=== PATIENT | male | born 1935 | race Caucasian/White ===

== ENCOUNTER 2016-10-15 23:27 | Inpatient (IN) | payer MEDICARE, OTHER ==
--- NOTE | ~2016-10-15 | CN ---
Consultation Report [facility] [address] [place]. [address] NAME: DOLORES RÍOS : 35 STATUS : DIS IN PAT#: [id number] AGE: 81 ADM/REG DATE : 10/16/16 MR#: [id number] REPORT SERV DATE: 10/21/16 DICTATED BY: NELSON BARAJAS DATE: 10/20/16 REPORT STATUS : Draft TRANSCRIBED BY: MODL DATE: 10/20/16 CONSULTATION DATE OF CONSULTATION: 10/20/2016 REASON FOR CONSULTATION: Bilateral foot pain. HISTORY OF PRESENT ILLNESS: The patient is an 81-year-old diabetic male, who is seen at bedside with present. The patient relates an approximate two- to three-week history of pain to both feet. He describes his foot pain as burning pain, but points to the top and bottom of the left foot and bottom of the right foot. The patient relates swelling, but denies redness, denies open wounds and confirms. Denies history of trauma or injury other than a serious injury years ago and having to have surgery after having the foot "torn off and fixed." The patient relates that he is one inch shorter on the left side due to the previous injury. PAST MEDICAL HISTORY: Includes uncontrolled diabetes, hypertension, neuropathy, sleep apnea, obesity, history of stroke, COPD, coronary artery disease. MEDICATIONS: A lengthy list of medications were reviewed in the chart. PAST SURGICAL HISTORY: Includes cholecystectomy, appendectomy, left hip surgery, right knee surgery, ankle surgery. ALLERGIES: MORPHINE. SOCIAL HISTORY: Denies alcohol, tobacco, or drug use. FAMILY HISTORY: Includes a bone cancer and heart disease. REVIEW OF SYSTEMS: Recent history of severe generalized weakness, UTI, left foot pain as described above. Currently, denies nausea, vomiting, fever, or chills. Currently, denies chest pain. PHYSICAL EXAMINATION: GENERAL: The patient is seen at bedside, resting comfortably. is present. The patient is a pleasant white male, in no acute distress. VITAL SIGNS: Stable. Afebrile. HEENT: Normocephalic and atraumatic. No visible drainage. LUNGS: Unlabored breathing with normal respiratory effort. CARDIOVASCULAR: Regular rate. His capillary refill time is less than 3 seconds, digits 1 through 10 tested. No erythema. There is bilateral pitting edema, 1/7 to the ankles and mild nonpitting edema to the forefoot. ABDOMEN: The patient is obese. Nondistended. DERMATOLOGICAL: There are no open lesions, no macerations, no erythema, no drainage, no Consultation Report [place] [id number] [place]. [address] NAME: DOLORES RÍOS : 35 STATUS : DIS IN PAT#: [id number] AGE: 81 ADM/REG DATE : 10/16/16 MR#: [id number] REPORT SERV DATE: 10/21/16 DICTATED BY: NELSON BARAJAS DATE: 10/20/16 REPORT STATUS : Draft TRANSCRIBED BY: PAVEL DATE: 10/20/16 odor. MUSCULOSKELETAL: There is pain-free range of motion of the right subtalar and ankle joint. Pain-free range of motion of the right mid foot. There is limited range of motion of the patient's left subtalar joint, and ankle fusion is present on the left ankle. There is significant pain to the patient's left second metatarsal shaft and mild pain to the left third metatarsal shaft. Minimal pain to the metatarsophalangeal joints bilaterally. Hammertoe contractures 2 through 5 bilaterally are present. LABORATORY DATA: White count is 10.8. Uric acid 3.4. Sed rate 92. X-ray findings show hammertoe contractures. No fractures. No secondary bone callus appreciated. Left ankle arthrodesis present. ASSESSMENT: 1. Painful diabetic neuropathy. 2. Possible left second metatarsal stress fracture. The patient has had a left ankle fusion with a left limb discrepancy. Although there is no objective findings on x-ray to diagnose a stress fracture, there is potential of this due to the significant pain of the second metatarsal. Unfortunately, due to his weakness and gait issues, the patient is a fall risk to be immobilized in a walking boot or postoperative shoe. With outpatient treatment, we can assess for a possibility of an AFO. He will need assistance for transfers. I will see the patient on an outpatient basis. RAMÓN/PAVEL Lincoln LeonardoPArron / [id number] CC: MD Godfrey Rivas M.D.
--- NOTE | ~2016-10-15 | HP ---
History And Physical [place] [id number] [facility] [place]. [address] NAME: DOLORES RÍOS : 35 STATUS : ADM Ankit PAT#: [id number] AGE: 81 ADM/REG DATE : 10/15/16 MR#: [id number] REPORT SERV DATE: 10/16/16 DICTATED BY: LUCINA FRANCES DATE: 10/16/16 REPORT STATUS : Draft TRANSCRIBED BY: MODL DATE: 10/16/16 DATE OF ADMISSION: 10/15/2016 CHIEF COMPLAINT: An 81-year-old male, presenting with weakness and confusion. HISTORY OF PRESENT ILLNESS: The patient's history was obtained through careful interview with the patient, , son and granddaughter coupled with review of [facility] and [facility] medical records. The patient for about two weeks now has been having increasing weakness. He seems unstable when he tries to get up and walk. But over the last two days it has really progressed to the point where he cannot walk without assistance, and he states frankly "I did not feel I was going to make it". Also, over the last few days, he has had intermittent confusion. He admits to having occasional visual hallucinations, feeling somnolent, for the last two days he has basically slept the entire day and has had an extremely poor appetite and poor oral intake, as well. No nausea or vomiting. No diarrhea. He denies any prostate symptoms and no dysuria. He claims his diabetes is generally under good control with blood sugars consistently less than 200. He has had a bloated abdomen with mild discomfort only 3-4/10 severity mostly felt in the mid abdomen. No headache. No chest pain. No shortness of breath. No cough. About two weeks ago he also began to develop some bilateral knee pain. He was placed on outpatient seven-day course of prednisone, which he completed a few days ago, with some relief in his pain. He also describes lightheadedness and near syncope at times. REVIEW OF SYSTEMS: Otherwise, a 14-point review of systems was obtained and was negative. PAST MEDICAL HISTORY: 1. COPD. 2. Coronary artery disease with history of stent placement. 3. Hypertension. 4. Elevated cholesterol. 5. Obstructive sleep apnea, but no longer tolerant of CPAP. 6. Diabetes. Hemoglobin A1c of 8.2 in June 2016. 7. Stroke by CT scan in the left basal ganglia lacunar. History And Physical [place] [address] [place]. [address] NAME: DOLORES RÍOS : 35 STATUS : ADM Ankit PAT#: [id number] AGE: 81 ADM/REG DATE : 10/15/16 MR#: [id number] REPORT SERV DATE: 10/16/16 DICTATED BY: LUCINA FRANCES DATE: 10/16/16 REPORT STATUS : Draft TRANSCRIBED BY: PAVEL DATE: 10/16/16 8. Thoracic aortic aneurysm 4.2 cm in June 2016. PAST SURGICAL HISTORY: 1. Cholecystectomy. 2. Appendectomy. 3. Left hip surgery by Dr. Velasquez. 4. Right knee surgery. 5. Ankle surgery x3. ALLERGIES: TO MORPHINE. SOCIAL HISTORY: Quit smoking in 1969. Rare alcohol use. He has three children. Lives in [place], [place]. He is . He is retired from working at the [employer]. FAMILY HISTORY: Father at 76 years of age of bone cancer. Mother at 76 years of age of a heart attack. Sister is 92 years old and very healthy. Had another sister in her 80s. CURRENT MEDICATIONS: 1. Norvasc 5 mg p.o. daily. 2. Aspirin 81 mg p.o. daily. 3. Lipitor 40 mg p.o. daily. 4. Benazepril 20 mg p.o. daily. 5. Metformin Extended Release 750 mg p.o. b.i.d. 6. Metoprolol Extended Release 25 mg p.o. daily. 7. Prilosec 20 mg p.o. daily. 8. Prednisone 20 mg p.o. b.i.d., completed on 10/11/2016. PHYSICAL EXAMINATION: VITAL SIGNS: Temperature 99.8, pulse 80, blood pressure 166/82, respiratory rate 20, and O2 saturation 90% on room air. GENERAL: A pleasant, cooperative male. He is in no evidence of acute distress. HEENT: Pupils equal, round, and reactive to light. No conjunctival pallor. No scleral icterus. Nares are patent. Oropharynx is clear of obstruction. Dry mucous membranes. NECK: Trachea midline. No thyromegaly. LYMPH: No cervical lymphadenopathy. No supraclavicular lymphadenopathy. RESPIRATORY: Clear to auscultation at bases. No wheezes, rales, or rhonchi. Normal respiratory effort. CARDIOVASCULAR: Regular rate and rhythm. No murmurs, rubs, or gallops are appreciated. The patient does have chronic appearing lower extremity edema, although when I discussed this with his , she states that the edema seems more than what she recalls, that is mostly around the feet and ankles only and is only minimally pitting and symmetrical. ABDOMEN: Soft, nontender, and nondistended. Normal bowel sounds auscultated throughout. No flank tenderness. No hepatosplenomegaly. DERMATOLOGICAL: Warm and dry extremities. No pallor. No cyanosis. PSYCHIATRIC: Normal affect. A very pleasant mood. He currently is oriented to location, has difficulty with precise orientation of time and has difficulty with orientation to History And Physical [address] [address] NAME: DOLORES RÍOS : 35 STATUS : ADM Ankit PAT#: [id number] AGE: 81 ADM/REG DATE : 10/15/16 MR#: [id number] REPORT SERV DATE: 10/16/16 DICTATED BY: LUCINA FRANCES DATE: 10/16/16 REPORT STATUS : Draft TRANSCRIBED BY: PAVEL DATE: 10/16/16 recent history. LABORATORY DATA: White blood cell count 12.8, hemoglobin 14, hematocrit 41, and platelets 161. Sodium 136, potassium 4.1, chloride 98, bicarb 28, BUN 15, creatinine 1.25, and glucose 183. Troponin negative. Liver enzymes within normal limits. Urinalysis shows leukocyte esterase with 44 white blood cells. ABG demonstrates pH is 7.48, a PaCO2 of 37, a PaO2 of 67. STUDIES: 1. Chest x-ray by my own evaluation shows no acute cardiopulmonary process. 2. EKG by my own evaluation shows sinus rhythm, right bundle-branch block, left anterior fascicular block. 3. CT scan of the brain without contrast shows no acute intracranial process. ASSESSMENT AND PLAN: 1. Urinary tract infection, presumptive diagnosis, but we will check urine culture to confirm and start IV Rocephin empirically. Check a bladder scan to rule out benign prostatic hypertrophy obstruction leading to this urine infection, but he denies symptoms at this time. 2. Acute encephalopathy, question whether this could have been steroid induced from recent large dose steroid course, but for now we will provide supportive care of dehydration, urinary tract infection, and see if it improves. The patient had a negative CT scan of the brain. 3. Acute kidney injury. Place on IV fluids. 4. Lymphedema. Check brain natriuretic peptide, question whether lymphedema was brought on by recent steroid use. 5. Diabetes. Hemoglobin A1c of 8.2 in June 2016. Continue oral medications and sliding scale insulin. 6. Gait disturbance. Obtain a physical therapy evaluation. KPL/MODFlora Lucina Frances M.D. / [id number] CC: History And Physical [address] [address] NAME: DOLORES RÍOS : 35 STATUS : ADM Ankit PAT#: [id number] AGE: 81 ADM/REG DATE : 10/15/16 MR#: [id number] REPORT SERV DATE: 10/16/16 DICTATED BY: LUCINA FRANCES DATE: 10/16/16 REPORT STATUS : Draft TRANSCRIBED BY: PAVEL DATE: 10/16/16 Darian Alberts Jr, MD Chris Horton, M.D.
--- NOTE | ~2016-10-15 | IDS ---
Interim Discharge Summary [facility] [address] [place]. [address] NAME: DOLORES RÍOS : 35 STATUS : ADM IN PAT#: [id number] AGE: 81 ADM/REG DATE : 10/16/16 MR#: [id number] REPORT SERV DATE: 10/19/16 DICTATED BY: AMY RICO DATE: 10/19/16 REPORT STATUS : Draft TRANSCRIBED BY: MODL DATE: 10/19/16 ADMISSION DATE: 10/16/2016 DISCHARGE DATE: PROBLEM LIST: 1. Acute encephalopathy, resolved. 2. Uncontrolled diabetes, the patient will need a home insulin use as a first time user, diabetic education nurse was called. 3. Hypertension. 4. Both feet pain with a combination of inflammation and also edema. Also, x-ray showed hammertoes. We are going to get the credit risk specialist consult and using extra diuretics and steroids to decrease inflammation and then he looked much better after the steroid treatment. 5. Sleep apnea, untreated. CPAP therapy. The patient will need to have followup with the primary care physician in order to obtain an aggressive sleep apnea treatment. 6. Noncompliance. 7. BMI of 35.2. HISTORY OF PRESENT ILLNESS: This is an 81-year-old male patient, who came to the hospital with both feet pain with encephalopathy. Initially, he was admitted to hospital with encephalopathy and UTI, but his urine culture is only showing coagulase-negative Staphylococcus. The patient was put on two doses of Rocephin and was discontinued. Most of time the problem was that both feet pain that he was not able to walk and had evaluation for that. Initially, he was put on a Neurontin to treat the neuropathy, but he was so sleepy with it and Neurontin was discontinued after 24 hours. He had an evaluation with x-ray and the exam was showing more inflammatory changes. He was put on dose of steroid and it made huge difference. He also has interestingly, all elevated inflammatory markers. Treatment of the Solu-Medrol for three doses will be given and then a quick taper dose of the steroid, and also, we are going to obtain the credit risk specialist consultation because of the severe deformity of the toes and hammertoes. Continue use of diclofenac topically for both feet and physical therapy. As it was decided to go to the rehab, they chose the [facility] or [facility] and correctional case manager is involved for this disposition. Overall, had improvement significantly after dose of diuretics and IV steroid. We will continue a few more doses and we will also give him an intense diabetic education. EKL/MODL y Rico M.D. / [id number] Interim Discharge Summary [address] [address] NAME: DOLORES RÍOS : 35 STATUS : ADM IN PAT#: [id number] AGE: 81 ADM/REG DATE : 10/16/16 MR#: [id number] REPORT SERV DATE: 10/19/16 DICTATED BY: AMY RICO DATE: 10/19/16 REPORT STATUS : Draft TRANSCRIBED BY: PAVEL DATE: 10/19/16 CC: Kusum Crane M.D.
--- NOTE | ~2016-10-15 | DS ---
Discharge Summary [facility] [address] [place]. [address] NAME: DOLORES RÍOS : 35 STATUS : DIS IN PAT#: [id number] AGE: 81 ADM/REG DATE : 10/16/16 MR#: [id number] REPORT SERV DATE: 10/21/16 DICTATED BY: DATE: REPORT STATUS : Draft TRANSCRIBED BY: MODL DATE: 10/20/16 ADMISSION DATE: 10/16/2016 DISCHARGE DATE: 10/20/2016 DISCHARGE DIAGNOSES: 1. Acute encephalopathy, resolved. 2. Diabetes mellitus type 2. 3. Hypertension. 4. Bilateral foot pain. 5. Obstructive sleep apnea. 6. Generalized weakness with gait disturbance. 7. Thoracic aortic aneurysm. 8. Coronary artery disease, status post stent. 9. Noncompliance. 10.Morbid obesity with body mass index of 35.2. CONSULTATION: Dr. Rae with Podiatry. PROCEDURES AND IMAGIN. 10/15/2016, CT of the brain without contrast showed moderate diffuse cerebral involutional changes in deep white matter, chronic microvascular changes with small old lacunar infarct in the left basal ganglia with no acute CVA or other acute pathology. 2. 10/15/2016, chest PA and lateral, showed a torturous thoracic aorta with no acute process or change. 3. 10/18/2016, bilateral feet showed severe hammertoe deformities on all five toes of the right foot. An old healed deformity of the distal left tibia and fibula and calcaneus and hammertoes on the left through fifth toes. 4. 10/18/2016, portable chest x-ray showed bibasilar segmental atelectasis secondary to low lung volumes. HOSPITAL COURSE: This is a pleasant 81-year-old male, who came to the hospital with encephalopathy and UTI. Please see H and P on 10/16/[address] Francis Morales. Since that time, the patient has been taking care of by Dr. Amy Rico, see interim discharge on 10/19/2016. Since admission, acute encephalopathy and UTI have been resolved. The patient's diabetes has still been poorly controlled and the patient might possibly need to be on insulin after discharge. At this time, it is hard to tell because the patient has been on steroids and will continue to be on steroids for the next few days. We have increased his metformin to 1000 mg b.i.d. and his sliding scale insulin to level 2. The patient's blood pressure has been well controlled with his blood pressure being between 120s and 140s over 60s to 70s on the patient's amlodipine and benazepril and metoprolol. The patient was consulted for his bilateral foot pain, per Dr. Chaparro Rae and Dr. Rae will be following him up as an outpatient. The patient also was using diclofenac gel on his feet for pain. The patient has a history of obstructive sleep apnea for which he is no longer compliant with the use of a CPAP. The patient has been wearing O2 at 2 L when he is in bed. The patient has been evaluated for date of service and generalized weakness by PT and OT and will be receiving inpatient rehab. The patient also chronically uses a cane or walker at Discharge [address] [address] NAME: DOLORES ÍROS : 35 STATUS : DIS IN PAT#: [id number] AGE: 81 ADM/REG DATE : 10/16/16 MR#: [id number] REPORT SERV DATE: 10/21/16 DICTATED BY: DATE: REPORT STATUS : Draft TRANSCRIBED BY: MODL DATE: 10/20/16 home. The patient also has a thoracic aortic aneurysm which was 4.2 cm in June of 2016 and this is being monitored. The patient has coronary artery disease for which he is status post stents and he has been on aspirin, hydrochlorothiazide, and beta echo. PHYSICAL EXAMINATION: VITAL SIGNS: Blood pressure is 122/68, O2 saturation is 92% on 2 L nasal cannula, temperature is 97.7, heart rate is 78, respirations are 16. HEENT: Head is atraumatic, normocephalic. Pupils are equal, round, reactive to light and accommodation. Sclerae are clear. Nonicteric. Mucous membranes are moist. Nares are patent. NECK: Supple with no obvious thyromegaly or lymphadenopathy. Neck veins are flat. CARDIAC: The patient has S1 and S2 with no obvious murmurs, rubs, or gallops. LUNGS: The lungs are clear to auscultation with normal respiratory effort. GI: Abdomen is soft and nontender, with protuberant abdomen. Active bowel sounds in all four quadrants. Normal bowel habitus with last bowel movement being on 10/19/2016. EXTREMITIES: The patient has normal distal pulses and no calf tenderness. The patient has edema right greater than left to mid oliveira. Right lower extremity has pitting 1+ edema and both feet are slightly erythematous. PSYCH: The patient is pleasant and appropriate. SKIN: Skin is warm and dry and intact with normal color and turgor. DISCHARGE DIET: The patient will be discharged on a 2000 calorie diabetic diet. DISCHARGE MEDICATIONS: Amlodipine 5 mg daily, aspirin 81 mg daily, Lipitor 40 mg daily, Lotensin 20 mg daily, Voltaren 1% gel 4 g to the sole of foot twice daily, hydrochlorothiazide 25 mg daily, metoprolol 25 mg daily, omeprazole 20 mg daily, sliding scale insulin level 2 before meals and bedtime daily, potassium chloride 20 mEq daily, metformin 1000 mg with breakfast and supper. Prednisone on descending basis, the patient is currently on 20 mg in the morning and then will have 10 mg on 10/22/2016 and then will be stopped. Acetaminophen 325 mg p.o. or p.r. q.4 hours p.r.n. temp greater than 101 or mild pain, docusate sodium 100 mg twice daily as needed for constipation, glucose tablets as needed for hypoglycemia, nitroglycerin 0.4 mg sublingual p.r.n. chest pain, Zofran 4 mg p.o. or sublingual q.4 hours p.r.n. nausea or vomiting. ALLERGIES: THE PATIENT IS ALLERGIC TO GLIPIZIDE AND MORPHINE. DISCHARGE INSTRUCTIONS: The patient is to follow up with Dr. Rae as instructed and follow up with PCP in 7 to 10 days after discharge from [facility]. Should the patient have any more problems, he is to call his PCP or to present to the ER. Approximately 40 minutes has been spent coordinating discharge care of this patient including [id number] encounter and summarization of the discharge. SLC/MODL Discharge Summary [place] [id number] [place]. [address] NAME: DOLORES RÍOS : 35 STATUS : DIS IN LOCATED [facility]IN [facility]#: [id number] AGE: 81 ADM/REG DATE : 10/16/16 MR#: [id number] REPORT SERV DATE: 10/21/16 DICTATED BY: DATE: REPORT STATUS : Draft TRANSCRIBED BY: PAVEL DATE: 10/20/16 Halie Cullen NP / [id number] CC: MD Godfrey Rivas M.D.
[2016-10-15 21:05] LABS: BASOPHILS 0.2 %; BASOPHILS ABSOLUTE 0.03 10/3/uL (0.0-0.16); EOSINOPHILS 1.8 %; EOSINOPHILS ABSOLUTE 0.23 10/3/uL (0.0-0.53); ER CBC TAT 0 Hrs 05 Mins; HEMATOCRIT 40.8 % (40.0-51.0); HEMOGLOBIN 13.8 g/dL (13.6-17.8); IMMATURE GRANULOCYTES 0.8 %; LYMPHOCYTES 12.7 %; LYMPHOCYTES ABSOLUTE 1.62 10/3/uL (0.67-4.30); MANUAL DIFF NO %; MEAN CORPUS HGB CONC 33.8 g/dL (32.0-36.0); MEAN CORPUSCULAR HEMOGLOB 29.1 pg (26.0-34.0); MEAN CORPUSCULAR VOLUME 85.9 fL (80-100); MEAN PLATELET VOLUME 11.4 fL (9.2-13.0); MONOCYTES 10.8 %; MONOCYTES ABSOLUTE 1.38 10/3/uL (0.21-1.20); NEUTROPHILS 73.7 %; NEUTROPHILS ABSOLUTE 9.39 10/3/uL (2.02-8.40); PLATELET COUNT 161 10/3/uL (150-400); RBC DISTRIBUTION WIDTH 14.7 % (12.0-16.0); RED CELL COUNT 4.75 10/6/uL (4.7-6.1); WHITE BLOOD CELLS 12.8 10/3/uL (4.5-10.5)
[2016-10-15 21:14] LABS: INTERNATIONAL NORMAL RATI 1.1 UNITS (-); PROTIME (NOT ORD) 14.1 SEC (12.0-14.5)
[2016-10-15 21:15] LABS: PARTIAL THROMBO TIME 30.9 SEC (22.5-37.2)
[2016-10-15 21:23] LABS: A/G RATIO 0.8 (0.7-1.9); ALBUMIN 3.3 G/DL (3.5-5.0); ALKALINE PHOSPHATASE 77 U/L (45-117); BUN (BLOOD UREA NITROGEN) 15 MG/DL (6-23); CALCIUM, SERUM 8.9 MG/DL (8.5-10.4); CHLORIDE, SERUM 98 MMOL/L (96-112); CO2 (CARBON DIOXIDE) 28 MMOL/L (24-34); CREATININE 1.25 MG/DL (0.70-1.30); GFR AFRICAN AMERICAN 62 ML/MIN (>=60); GFR NON AFRICAN AMERICAN 54 ML/MIN (>=60); GLOBULIN 4.1 G/DL (2.5-4.1); GLUCOSE, SERUM 183 MG/DL (60-99); POTASSIUM, SERUM 4.1 MMOL/L (3.5-5.3); SGOT(AST) 9 U/L (5-40); SGPT(ALT) 16 U/L (5-65); SODIUM, SERUM 136 MMOL/L (135-148); TOTAL BILIRUBIN 1.1 MG/DL (0-1.2); TOTAL PROTEIN 7.4 G/DL (6.0-8.5); TROPONIN I <0.02 NG/ML (<0.05)
[2016-10-15 21:51] LABS: BE (BASE EXCESS) 3.6 MEQ/L (0 +/- 2.5); CARBOXYHEMOGLOBIN 1.9 % (0-3); HEMOBLOGIN CONTENT 13.4 G/DL (14-18); INSTRUMENT SERIAL # 8087; O2 CONTENT 17.3 VOL% (18-24); OPERATOR ID 17589; PCO2 (CO2 TENSION) 37 MMHG (35-45); PO2 (O2 TENSION) 67 MMHG (79-93); SAMPLE Arterial; pH 7.48 (7.37-7.43)
[2016-10-15 21:52] LABS: ALLENS TEST Pos
[2016-10-15 21:55] LABS: PROCALCITONIN < 0.05 ng/mL (<0.5)
[2016-10-15 23:00] LABS: ASCORBIC ACID (UR NOT ORDER) NEG (NEG); BILIRUBIN, URINE NEGATIVE (NEG); ER URINALYSIS TAT 0 Hrs 20 Mins; KETONE, URINE NEGATIVE (NEG); LEUKOCYTE ESTERASE(NOT OR TRACE (NEG); NITRITE (URINE) NEG (NEG); WBC (NOT ORDERED) (RFLEX) 44 (0-5)
[~2016-10-15 23:27] MED LIST: ASAB PO; FISH-EPA1000 MG PO; HALF81 PO; LOP25 PO; LOTE20 PO; LOTREL1 CA4 PO; NORV10 PO; NORV5 PO; P20 PO; PRILO PO; TOPXL25 PO; ZOCOR40 PO
[2016-10-15] MEDS ORDERED: LIPITOR40 PO (23:28)
[2016-10-15] MEDS ORDERED: GLUCOPHXR7 PO (23:28)
[2016-10-15] MEDS ORDERED: PRILO PO (23:29)
[2016-10-16 04:31] LABS: BASOPHILS 0.2 %; BASOPHILS ABSOLUTE 0.03 10/3/uL (0.0-0.16); EOSINOPHILS ABSOLUTE 0.26 10/3/uL (0.0-0.53); HEMATOCRIT 38.9 % (40.0-51.0); HEMOGLOBIN 13.7 g/dL (13.6-17.8); IMMATURE GRANULOCYTES 0.5 %; IMMATURE GRANULOCYTES ABSOLUTE 0.07 10/3/uL (0.0-0.11); LYMPHOCYTES 16.9 %; LYMPHOCYTES ABSOLUTE 2.19 10/3/uL (0.67-4.30); MEAN CORPUS HGB CONC 35.2 g/dL (32.0-36.0); MEAN CORPUSCULAR HEMOGLOB 30.1 pg (26.0-34.0); MEAN CORPUSCULAR VOLUME 85.5 fL (80-100); MEAN PLATELET VOLUME 12.4 fL (9.2-13.0); MONOCYTES 11.3 %; MONOCYTES ABSOLUTE 1.47 10/3/uL (0.21-1.20); NEUTROPHILS 69.1 %; NEUTROPHILS ABSOLUTE 8.94 10/3/uL (2.02-8.40); PLATELET COUNT 138 10/3/uL (150-400); RBC DISTRIBUTION WIDTH 14.9 % (12.0-16.0); RED CELL COUNT 4.55 10/6/uL (4.7-6.1)
[2016-10-16 04:34] LABS: MANUAL DIFF NO %
[2016-10-16 04:59] LABS: A/G RATIO 0.8 (0.7-1.9); ALKALINE PHOSPHATASE 72 U/L (45-117); BUN (BLOOD UREA NITROGEN) 13 MG/DL (6-23); CHLORIDE, SERUM 97 MMOL/L (96-112); CO2 (CARBON DIOXIDE) 27 MMOL/L (24-34); CREATININE 0.95 MG/DL (0.70-1.30); GFR AFRICAN AMERICAN 87 ML/MIN (>=60); GFR NON AFRICAN AMERICAN 75 ML/MIN (>=60); GLOBULIN 3.9 G/DL (2.5-4.1); GLUCOSE, SERUM 153 MG/DL (60-99); POTASSIUM, SERUM 3.7 MMOL/L (3.5-5.3); SGOT(AST) 7 U/L (5-40); SGPT(ALT) 17 U/L (5-65); SODIUM, SERUM 132 MMOL/L (135-148); TOTAL BILIRUBIN 1.4 MG/DL (0-1.2); TOTAL PROTEIN 6.9 G/DL (6.0-8.5); TROPONIN I <0.02 NG/ML (<0.05)
[2016-10-16 05:01] LABS: CALCIUM, SERUM 8.8 MG/DL (8.5-10.4)
[2016-10-16 05:31] LABS: INTERNATIONAL NORMAL RATI 1.2 UNITS (-); PROTIME (NOT ORD) 14.9 SEC (12.0-14.5)
[2016-10-17 05:43] LABS: BUN (BLOOD UREA NITROGEN) 13 MG/DL (6-23); CALCIUM, SERUM 8.5 MG/DL (8.5-10.4); CHLORIDE, SERUM 96 MMOL/L (96-112); CO2 (CARBON DIOXIDE) 28 MMOL/L (24-34); CREATININE 0.98 MG/DL (0.70-1.30); GFR AFRICAN AMERICAN 83 ML/MIN (>=60); GFR NON AFRICAN AMERICAN 72 ML/MIN (>=60); GLUCOSE, SERUM 162 MG/DL (60-99); SODIUM, SERUM 133 MMOL/L (135-148)
[2016-10-18 06:22] LABS: BASOPHILS 0 %; EOSINOPHILS 0.3 %; EOSINOPHILS ABSOLUTE 0.04 10/3/uL (0.0-0.53); HEMOGLOBIN 12.8 g/dL (13.6-17.8); IMMATURE GRANULOCYTES 0.5 %; IMMATURE GRANULOCYTES ABSOLUTE 0.06 10/3/uL (0.0-0.11); LYMPHOCYTES 7.9 %; LYMPHOCYTES ABSOLUTE 1.05 10/3/uL (0.67-4.30); MEAN CORPUS HGB CONC 34.6 g/dL (32.0-36.0); MEAN CORPUSCULAR HEMOGLOB 29.6 pg (26.0-34.0); MEAN CORPUSCULAR VOLUME 85.5 fL (80-100); MEAN PLATELET VOLUME 11.7 fL (9.2-13.0); MONOCYTES ABSOLUTE 1.45 10/3/uL (0.21-1.20); NEUTROPHILS 80.3 %; NEUTROPHILS ABSOLUTE 10.63 10/3/uL (2.02-8.40); PLATELET COUNT 145 10/3/uL (150-400); RBC DISTRIBUTION WIDTH 14.6 % (12.0-16.0); RED CELL COUNT 4.33 10/6/uL (4.7-6.1); WHITE BLOOD CELLS 13.2 10/3/uL (4.5-10.5)
[2016-10-18 06:24] LABS: MANUAL DIFF NO %
[2016-10-18 06:37] LABS: CALCIUM, SERUM 8.6 MG/DL (8.5-10.4); CHLORIDE, SERUM 95 MMOL/L (96-112); CO2 (CARBON DIOXIDE) 26 MMOL/L (24-34); CPK 66 U/L (0-200); CREATININE 1.13 MG/DL (0.70-1.30); GFR AFRICAN AMERICAN 70 ML/MIN (>=60); GFR NON AFRICAN AMERICAN 61 ML/MIN (>=60); POTASSIUM, SERUM 4.2 MMOL/L (3.5-5.3); SODIUM, SERUM 131 MMOL/L (135-148)
[2016-10-18 06:38] LABS: BUN (BLOOD UREA NITROGEN) 18 MG/DL (6-23); GLUCOSE, SERUM 206 MG/DL (60-99)
[2016-10-19 05:17] LABS: BASOPHILS 0.1 %; BASOPHILS ABSOLUTE 0.01 10/3/uL (0.0-0.16); EOSINOPHILS 0 %; HEMATOCRIT 35.4 % (40.0-51.0); HEMOGLOBIN 12.3 g/dL (13.6-17.8); IMMATURE GRANULOCYTES 0.3 %; IMMATURE GRANULOCYTES ABSOLUTE 0.03 10/3/uL (0.0-0.11); LYMPHOCYTES 6.4 %; LYMPHOCYTES ABSOLUTE 0.69 10/3/uL (0.67-4.30); MEAN CORPUS HGB CONC 34.7 g/dL (32.0-36.0); MEAN CORPUSCULAR HEMOGLOB 29.4 pg (26.0-34.0); MEAN CORPUSCULAR VOLUME 84.5 fL (80-100); MEAN PLATELET VOLUME 11.9 fL (9.2-13.0); MONOCYTES 4.3 %; MONOCYTES ABSOLUTE 0.46 10/3/uL (0.21-1.20); NEUTROPHILS 88.9 %; NEUTROPHILS ABSOLUTE 9.63 10/3/uL (2.02-8.40); PLATELET COUNT 156 10/3/uL (150-400); RBC DISTRIBUTION WIDTH 14.4 % (12.0-16.0); RED CELL COUNT 4.19 10/6/uL (4.7-6.1); WHITE BLOOD CELLS 10.8 10/3/uL (4.5-10.5)
[2016-10-19 05:40] LABS: ALBUMIN 2.4 G/DL (3.5-5.0); ALKALINE PHOSPHATASE 75 U/L (45-117); CALCIUM, SERUM 9.4 MG/DL (8.5-10.4); CHLORIDE, SERUM 94 MMOL/L (96-112); CO2 (CARBON DIOXIDE) 26 MMOL/L (24-34); CREATININE 1.04 MG/DL (0.70-1.30); GFR AFRICAN AMERICAN 78 ML/MIN (>=60); GFR NON AFRICAN AMERICAN 67 ML/MIN (>=60); GLUCOSE, SERUM 219 MG/DL (60-99); SGPT(ALT) 24 U/L (5-65); SODIUM, SERUM 132 MMOL/L (135-148); TOTAL BILIRUBIN 1.1 MG/DL (0-1.2); TOTAL PROTEIN 7.1 G/DL (6.0-8.5)
[2016-10-19 05:42] LABS: A/G RATIO 0.5 (0.7-1.9); BUN (BLOOD UREA NITROGEN) 22 MG/DL (6-23); GLOBULIN 4.7 G/DL (2.5-4.1); POTASSIUM, SERUM 4.5 MMOL/L (3.5-5.3); SGOT(AST) 24 U/L (5-40)
[2016-10-19 05:47] LABS: MANUAL DIFF NO %
[2016-10-19 07:14] LABS: SED RATE 92 MM/HR (0-15)
[2016-10-20 05:39] LABS: CHLORIDE, SERUM 95 MMOL/L (96-112); CO2 (CARBON DIOXIDE) 26 MMOL/L (24-34); CREATININE 1.19 MG/DL (0.70-1.30); GFR AFRICAN AMERICAN 66 ML/MIN (>=60); GFR NON AFRICAN AMERICAN 57 ML/MIN (>=60); GLUCOSE, SERUM 241 MG/DL (60-99); POTASSIUM, SERUM 4.5 MMOL/L (3.5-5.3); SODIUM, SERUM 132 MMOL/L (135-148)
[2016-10-20 05:44] LABS: BUN (BLOOD UREA NITROGEN) 36 MG/DL (6-23); CALCIUM, SERUM 8.4 MG/DL (8.5-10.4)
== END 2016-10-20 18:02 | DRG 682 ==
LOC: ER 23:27 → CDU1 23:56 → CDU2 10-16 01:07 → 2SO 10-17 15:51
PROVIDERS: Emergency Medicine; Internal Medicine
DX: N17.9 Acute kidney failure, unspecified (principal); G93.40 Encephalopathy, unspecified; E11.65 Type 2 diabetes mellitus with hyperglycemia; E11.42 Type 2 diabetes mellitus with diabetic polyneuropathy; N39.0 Urinary tract infection, site not specified; I45.2 Bifascicular block; E86.0 Dehydration; I71.4 Abdominal aortic aneurysm, without rupture; I89.0 Lymphedema, not elsewhere classified; R26.9 Unspecified abnormalities of gait and mobility; M20.40 Other hammer toe(s) (acquired), unspecified foot; G47.33 Obstructive sleep apnea (adult) (pediatric); E66.01 Morbid (severe) obesity due to excess calories; M84.375A Stress fracture, left foot, initial encounter for fracture; Z91.19 Patient's noncompliance with other medical treatment and regimen; Z68.35 Body mass index [BMI] 35.0-35.9, adult; Z86.73 Personal history of transient ischemic attack (TIA), and cerebral infarction without residual deficits; Z98.890 Other specified postprocedural states; Z87.891 Personal history of nicotine dependence; Z88.5 Allergy status to narcotic agent; Z82.49 Family history of ischemic heart disease and other diseases of the circulatory system; Z80.8 Family history of malignant neoplasm of other organs or systems; Z95.5 Presence of coronary angioplasty implant and graft
CPT/HCPCS: 36600; 70450; 71010; 71020; 73630-50; 80048; 80053; 81001; 82550; 82805; 82962; 83605; 83735; 83880; 84145; 84443; 84484; 84550; 85025; 85610; 85652; 85730; 86140; 87086; 93005; 96374; 97116-GP; 97161-GP; 99285; A9270-GY; G8978-CK-GP; G8979-CK-GP; G8980-CK-GP; J2930